=== PATIENT | female | born 1960 | race Caucasian/White ===

== ENCOUNTER → 2017-06-22 | Outpatient (CLI) | payer OTHER, MEDICAID | LOC: BMCIMAGING 10:19 | PROVIDERS: ATTEND Orthopaedic Surgery | DX: M25.562 Pain in left knee (principal); M79.89 Other specified soft tissue disorders; Z96.652 Presence of left artificial knee joint ==

== ENCOUNTER 2017-12-09 18:53 | Inpatient (IN) | payer OTHER, MEDICAID ==
[2017-12-09] MEDS ORDERED: NS 2,200 ML IV ONE (19:44)
--- NOTE | 2017-12-09 19:48 | EDPHY ---
H & P Stated Complaint: memory issues last 2 weeks Time Seen by Provider: 12/09/17 19:33 HPI/ROS: CHIEF COMPLAINT: Altered mental status HISTORY OF PRESENT ILLNESS: The patient is a 57-year-old female who's 2 children bring her to the emergency department complaining that she is confused and delusional. She had a left knee replacement 2 months ago. She was doing well until she had her cast removed about 2 weeks ago. From that point on her children states that she has been very confused. The patient has no complaints but family states that she is wetting the bed several times a day and frequently incontinent of urine. They have not noticed any diarrhea or vomiting recently. She has been walking around the house even when she is not supposed to including walking the dog. The patient has left the stove on twice. She told her children that the cleaning lady was teaching her brail. She told them that she went horseback riding with their sister even though the sister lives in [place] etc. No focal weakness or numbness. REVIEW OF SYSTEMS: Constitutional: denies: chills, fever, recent illness, recent injury EENTM: denies: blurred vision, double vision, nose congestion Respiratory: denies: cough, shortness of breath Cardiac: denies: chest pain, irregular heart rate, lightheadedness, palpitations Gastrointestinal/Abdominal: denies: abdominal pain, diarrhea, nausea, vomiting, blood streaked stools Genitourinary: See HPI Musculoskeletal: denies: joint pain, muscle pain Skin: denies: lesions, rash, jaundice, bruising Neurological: See HPI denies: headache, numbness, paresthesia, tingling, dizziness, weakness Hematologic/Lymphatic: denies: blood clots, easy bleeding, easy bruising Immunologic/allergic: denies: HIV/AIDS, transplant EXAM: GENERAL: Well-appearing, well-nourished and in no acute distress. HEAD: Atraumatic, normocephalic. EYES: Pupils equal round and reactive to light, extraocular movements intact, sclera anicteric, conjunctiva are normal. ENT: TMs normal, nares patent, oropharynx clear without exudates. Moist mucous membranes. NECK: Normal range of motion, supple without lymphadenopathy or JVD. LUNGS: Breath sounds clear to auscultation bilaterally and equal. No wheezes rales or rhonchi. HEART: Regular rate and rhythm without murmurs, rubs or gallops. ABDOMEN: Soft, nontender, normoactive bowel sounds. No guarding, no rebound. No masses appreciated. BACK: No CVA tenderness, no spinal tenderness, step-offs or deformities EXTREMITIES: Left knee in brace, taken down, incision clean dry and intact with no erythema. Mild pain with palpation, no warmth or significant swelling NEUROLOGICAL: Cranial nerves II through XII grossly intact. Normal speech, normal gait. 5/5 strength, normal movement in all extremities, normal sensation PSYCH: Normal mood, normal affect. SKIN: Warm, dry, normal turgor, no visible rashes or lesions. Source: Patient Exam Limitations: No limitations - Personal History Current Tetanus/Diphtheria Vaccine: Yes - Medical/Surgical History Hx Asthma: No Hx Chronic Respiratory Disease: No Hx Diabetes: No Hx Cardiac Disease: No Hx Renal Disease: No Hx Cirrhosis: No Hx Alcoholism: No Hx HIV/AIDS: No Hx Splenectomy or Spleen Trauma: No Other PMH: l knee surgery - Family History Significant Family History: No pertinent family hx - Social History Smoking Status: Former smoker Alcohol Use: Sober Drug Use: None Constitutional: Initial Vital Signs Temperature (C) 37 C 12/09/17 19:09 Heart Rate 70 12/09/17 19:09 Respiratory Rate 18 12/09/17 19:09 Blood Pressure 127/71 H 12/09/17 19:09 O2 Sat (%) 95 12/09/17 19:09 O2 Delivery Mode Room Air Allergies/Adverse Reactions: No Known Allergies Allergy (Unverified 12/09/17 19:07) Home Medications: Medication Instructions Recorded ALPRAZolam [Xanax] 2 mg PO BID PRN 12/09/17 Benztropine Mesylate [Cogentin (*)] 2 mg PO HS 12/09/17 Lurasidone HCl [Latuda] 80 mg PO HS 12/09/17 Methylphenidate HCl [Ritalin 20mg 40 mg PO TID 12/09/17 (*)] Sertraline HCl [Zoloft 50mg (*)] 50 mg PO DAILY 12/09/17 oxyCODONE IR [Oxycodone Ir (*)] 5 - 10 mg PO Q4H PRN 12/09/17 traZODone HCL [Trazodone HCl] 300 mg PO HS 12/09/17 Medical Decision Making ED Course/Re-evaluation: The patient has white cells in her urine although it is not overly impressive but mixed with her clinical picture and history I suspect that she has urinary tract infection causing this altered mental status. I will start her on ceftriaxone admit to the hospitalist service. Family is relieved with this. They state that they cannot handle her at home. She is not toxic appearing and not febrile. She does not meet SIRS or septic criteria. She did receive a fluid bolus. 9:20 p.m. I discussed the case with Dr. Olivo who will admit to the medical service Differential Diagnosis: Partial list of the Differential diagnosis considered include but were not limited to; urinary tract infection, medication reaction and although unlikely based on the history and physical exam, I also considered meningitis, encephalopathy, hemorrhage, CVA. - Data Points Laboratory Results: Laboratory Results 12/09/17 20:00 12/09/17 20:00 12/09/17 12/09/17 12/09/17 20:30 20:00 20:00 Sodium 143 mEq/L mEq/L (135-145) Potassium 3.3 mEq/L L mEq/L (3.5-5.2) Chloride 105 mEq/L mEq/L (97-110) Carbon Dioxide 24 mEq/l mEq/l (22-31) Anion Gap 14 mEq/L mEq/L (8-16) BUN 13 mg/dL mg/dL (7-23) Creatinine 0.6 mg/dL mg/dL (0.6-1.0) Estimated GFR > 60 Glucose 133 mg/dL H mg/dL (70-100) Calcium 9.9 mg/dL mg/dL (8.5-10.4) Total Bilirubin 0.3 mg/dL mg/dL 0.4 mg/dL mg/dL (0.1-1.4) (0.1-1.4) Conjugated Bilirubin 0.2 mg/dL mg/dL (0.0-0.5) Unconjugated Bilirubin 0.1 mg/dL mg/dL (0.0-1.1) AST 19 IU/L IU/L (14-46) ALT 15 IU/L IU/L (9-52) Alkaline Phosphatase 91 IU/L IU/L (38-126) Total Protein 7.5 g/dL g/dL (6.3-8.2) Albumin 4.4 g/dL g/dL (3.5-5.0) Urine Color YELLOW Urine Appearance HAZY Urine pH 5.0 (5.0-7.5) Ur Specific [place] 1.030 (1.002-1.030) Urine Protein 1+ H (NEGATIVE) Urine Ketones 1+ H (NEGATIVE) Urine Blood NEGATIVE (NEGATIVE) Urine Nitrate NEGATIVE (NEGATIVE) Urine Bilirubin NEGATIVE (NEGATIVE) Urine Urobilinogen 2.0 EU H EU (0.2-1.0) Ur Leukocyte Esterase NEGATIVE (NEGATIVE) Urine RBC 1-3 /hpf /hpf (0-3) Urine WBC 5-10 /hpf H /hpf (0-3) Ur Epithelial Cells TRACE /lpf /lpf (NONE-1+) Urine Mucus 4+ /lpf H /lpf (NONE-1+) Urine Glucose NEGATIVE (NEGATIVE) Medications Given: Acetaminophen (Tylenol) 650 mg PO Q4HRS PRN PRN Reason: Pain, Mild/Fever, Can Take PO Stop: 06/07/18 22:19 Last Admin: 12/10/17 05:06 Dose: 650 mg Discontinued Medications Sodium Chloride (Ns) 2,200 mls @ 4,400 mls/hr 30 ml/kg infuse over 30 min ( 2200 ml) IV EDNOW ONE PRN Reason: Protocol Stop: 12/09/17 20:13 Last Admin: 12/09/17 20:04 Dose: 2,200 mls Ceftriaxone Sodium 1 gm/ (Sterile Water) 10 mls @ 150 mls/hr IV EDNOW ONE PRN Reason: Protocol Stop: 12/09/17 21:14 Last Admin: 12/09/17 21:55 Dose: 10 mls Departure - Departure Disposition: [facility] Acute Clinical Impression: Altered mental status Qualifiers: Altered mental status type: unspecified Qualified Code(s): R41.82 - Altered mental status, unspecified Urinary tract infection Qualifiers: Urinary tract infection type: site unspecified Hematuria presence: without hematuria Qualified Code(s): N39.0 - Urinary tract infection, site not specified Condition: Fair
[2017-12-09 20:07] LABS: PLATELET COUNT 394 10^3/uL (150-400)
[2017-12-09 20:20] LABS: INR 1.16 (0.83-1.16)
[2017-12-09] MEDS ORDERED: cefTRIAXone 1 GM in STERILE WATER INJ 10 ML IV ONE (21:11)
[2017-12-09] MEDS ORDERED: ONDANSETRON DISINTEGRATING 4 MG TAB PO PRN (22:20)
[2017-12-09] MEDS ORDERED: ONDANSETRON 4 MG/2 ML VIAL IVP PRN (22:20)
--- NOTE | 2017-12-09 23:57 | PDGENHP ---
History and Physical - Chief Complaint Altered Mental Status - History of Present Illness 57 yo F w/ hx of depression and chronic pain presents with altered mental status. Patient brought to ED by her adult children complaining of recent confusion and delusional thinking. Patient had a L knee replacement 2 months ago. She was doing well until she had the cast removed 2 weeks ago. Since that time children state that patient has been confused. The patient denies any symptoms or recent illness. She recognizes the fact that she is more confused than usual. Per her children, there have been many examples of patient confabulating stories or seeing things that were not there. Patient's medication list is concerning as it contains numerous centrally acting medications. Patient states she takes all of these multiple times a day and is hazy on the details of how many she takes. History Information - Allergies/Home Medication List Allergies/Adverse Reactions: No Known Allergies Allergy (Unverified 12/09/17 19:07) Home Medications: ALPRAZolam [Xanax] 2 mg PO BID PRN 12/09/17 [Last Taken 12/08/17] Benztropine Mesylate [Cogentin (*)] 2 mg PO HS 12/09/17 [Last Taken 12/08/17] Lurasidone HCl [Latuda] 80 mg PO HS 12/09/17 [Last Taken 12/08/17] Methylphenidate HCl [Ritalin 20mg (*)] 40 mg PO TID 12/09/17 [Last Taken ] Sertraline HCl [Zoloft 50mg (*)] 50 mg PO DAILY 12/09/17 [Last Taken 12/09/17] oxyCODONE IR [Oxycodone Ir (*)] 5 - 10 mg PO Q4H PRN 12/09/17 [Last Taken ] traZODone HCL [Trazodone HCl] 300 mg PO HS 12/09/17 [Last Taken 12/08/17] I have personally reviewed and updated: family history, medical history - Past Medical History Additional medical history: Depression. Chronic pain. OA - Surgical History Reports: spinal surgery Additional surgical history: L Knee replacement - Family History Positive for: cancer Additional family history: Depression, anxiety - Social History Smoking Status: Former smoker Alcohol Use: Sober Drug Use: None Review of Systems Review of Systems: ROS: 10pt was reviewed & negative except for what was stated in HPI & below Physical Exam Physical Exam: Temp Pulse Resp BP Pulse Ox 37 C 72 16 122/74 H 95 12/09/17 19:09 12/09/17 20:30 12/09/17 20:30 12/09/17 20:30 12/09/17 20:30 Constitutional: no apparent distress, not in pain Eyes: PERRL, EOMI Ears, Nose, Mouth, Throat: moist mucous membranes, no oral mucosal ulcers Cardiovascular: regular rate and rhythym, systolic murmur Respiratory: no respiratory distress, clear to auscultation Gastrointestinal: normoactive bowel sounds, soft, non-tender abdomen Skin: warm, normal color Musculoskeletal: full muscle strength, no muscle tenderness Neurologic: CN II-XII Intact, other (A&Ox1) Psychiatric: interacting appropriately, poor insight, poor memory Lab Data & Imaging Review 12/09/17 20:00 12/09/17 20:00 WBC 8.85 10^3/uL (3.80-9.50) 12/09/17 20:00 RBC 4.32 10^6/uL (4.18-5.33) 12/09/17 20:00 Hgb 11.2 g/dL (12.6-16.3) L 12/09/17 20:00 Hct 34.0 % (38.0-47.0) L 12/09/17 20:00 MCV 78.7 fL (81.5-99.8) L 12/09/17 20:00 MCH 25.9 pg (27.9-34.1) L 12/09/17 20:00 MCHC 32.9 g/dL (32.4-36.7) 12/09/17 20:00 RDW 15.0 % (11.5-15.2) 12/09/17 20:00 Plt Count 394 10^3/uL (150-400) 12/09/17 20:00 MPV 10.0 fL (8.7-11.7) 12/09/17 20:00 Neut % (Auto) 70.1 % (39.3-74.2) 12/09/17 20:00 Lymph % (Auto) 22.1 % (15.0-45.0) 12/09/17 20:00 Millard % (Auto) 6.8 % (4.5-13.0) 12/09/17 20:00 Eos % (Auto) 0.1 % (0.6-7.6) L 12/09/17 20:00 Baso % (Auto) 0.7 % (0.3-1.7) 12/09/17 20:00 Nucleat RBC Rel Count 0.0 % (0.0-0.2) 12/09/17 20:00 Absolute Neuts (auto) 6.20 10^3/uL (1.70-6.50) 12/09/17 20:00 Absolute Lymphs (auto) 1.96 10^3/uL (1.00-3.00) 12/09/17 20:00 Absolute Monos (auto) 0.60 10^3/uL (0.30-0.80) 12/09/17 20:00 Absolute Eos (auto) 0.01 10^3/uL (0.03-0.40) L 12/09/17 20:00 Absolute Basos (auto) 0.06 10^3/uL (0.02-0.10) 12/09/17 20:00 Absolute Nucleated RBC 0.00 10^3/uL (0-0.01) 12/09/17 20:00 Immature Gran % 0.2 % (0.0-1.1) 12/09/17 20:00 Immature Gran # 0.02 10^3/uL (0.00-0.10) 12/09/17 20:00 PT 15.0 SEC (12.0-15.0) 12/09/17 20:00 INR 1.16 (0.83-1.16) 12/09/17 20:00 APTT 27.6 SEC (23.0-38.0) 12/09/17 20:00 VBG Lactic Acid 2.0 mmol/L (0.7-2.1) 12/09/17 20:00 Sodium 143 mEq/L (135-145) 12/09/17 20:00 Potassium 3.3 mEq/L (3.5-5.2) L 12/09/17 20:00 Chloride 105 mEq/L (97-110) 12/09/17 20:00 Carbon Dioxide 24 mEq/l (22-31) 12/09/17 20:00 Anion Gap 14 mEq/L (8-16) 12/09/17 20:00 BUN 13 mg/dL (7-23) 12/09/17 20:00 Creatinine 0.6 mg/dL (0.6-1.0) 12/09/17 20:00 Estimated GFR > 60 12/09/17 20:00 Glucose 133 mg/dL (70-100) H 12/09/17 20:00 Calcium 9.9 mg/dL (8.5-10.4) 12/09/17 20:00 Total Bilirubin 0.3 mg/dL (0.1-1.4) 12/09/17 20:00 Conjugated Bilirubin 0.2 mg/dL (0.0-0.5) 12/09/17 20:00 Unconjugated Bilirubin 0.1 mg/dL (0.0-1.1) 12/09/17 20:00 AST 19 IU/L (14-46) 12/09/17 20:00 ALT 15 IU/L (9-52) 12/09/17 20:00 Alkaline Phosphatase 91 IU/L (38-126) 12/09/17 20:00 Total Protein 7.5 g/dL (6.3-8.2) 12/09/17 20:00 Albumin 4.4 g/dL (3.5-5.0) 12/09/17 20:00 Urine Color YELLOW 12/09/17 20:30 Urine Appearance HAZY 12/09/17 20:30 Urine pH 5.0 (5.0-7.5) 12/09/17 20:30 Ur Specific [place] 1.030 (1.002-1.030) 12/09/17 20:30 Urine Protein 1+ (NEGATIVE) H 12/09/17 20:30 Urine Ketones 1+ (NEGATIVE) H 12/09/17 20:30 Urine Blood NEGATIVE (NEGATIVE) 12/09/17 20:30 Urine Nitrate NEGATIVE (NEGATIVE) 12/09/17 20:30 Urine Bilirubin NEGATIVE (NEGATIVE) 12/09/17 20:30 Urine Urobilinogen 2.0 EU (0.2-1.0) H 12/09/17 20:30 Ur Leukocyte Esterase NEGATIVE (NEGATIVE) 12/09/17 20:30 Urine RBC 1-3 /hpf (0-3) 12/09/17 20:30 Urine WBC 5-10 /hpf (0-3) H 12/09/17 20:30 Ur Epithelial Cells TRACE /lpf (NONE-1+) 12/09/17 20:30 Urine Mucus 4+ /lpf (NONE-1+) H 12/09/17 20:30 Urine Glucose NEGATIVE (NEGATIVE) 12/09/17 20:30 Imaging Review: Imaging Impressions Head CT 12/09/17 22:59 Impression: 1. Normal CT brain without contrast. 2. Consider MRI of the brain, if there is continued clinical concern. Assessment & Plan Assessment: 57 yo F w/ hx of depression, anxiety, and chronic pain presents with altered mental status. Plan: 1. Sub-acute encephalopathy - Unclear etiology, patient's family reports confusion and delusional thinking for about 2 weeks. She received treatment for UTI in the ED but her UA is not convincing and she denies symptoms of UTI. I suspect this at least partly related to polypharmacy noting patient takes multiple centrally acting medications including opiates, benzodiazepenes, and antipsychotics. - CTH to rule out chronic sub-dural, NPH, etc. - LFTs to screen for HE - TSH, B12, RPR for basic reversible causes of dementia work-up - Observe off on antibiotics for now, await urine culture - OT cognitive evaluation ordered - Limit centrally acting meds as best as able and observe for clearing 2. Depression - Patient on Latuda and Zoloft for this. 3. Chronic pain - As a result of multiple surgeries. She takes oxycodone several times daily. 4. OA - Reports history of spinal and knee surgeries. Diet - Regular Code - Full Ppx - LMWH Dispo - Admit to observation status
[2017-12-10] MEDS: ACETAMINOPHEN 325 MG TAB PO PRN ×3 (05:06→20:52)
[2017-12-10 06:10] LABS: PLATELET COUNT 343 10^3/uL (150-400)
[2017-12-10] MEDS: ENOXAPARIN 40 MG/0.4 ML SYR SC SCH ×2 (10:35→12:12)
[2017-12-10] MEDS ORDERED: NICOTINE POLACRILEX 2 MG GUM B PRN (11:43)
[2017-12-10] MEDS ORDERED: HALOPERIDOL LACT 5 MG/ML INJ IVP ONE (11:43)
[2017-12-10] MEDS ORDERED: LURASIDONE HCL 40 MG TAB PO ONE (13:14)
[2017-12-10] MEDS ORDERED: POTASSIUM CL 20 MEQ TAB PO ONE (13:54)
--- NOTE | 2017-12-10 13:56 | HOSPPROG ---
Hospitalist Progress Note Assessment/Plan: # agitated encephalopathy - likely manic episode - unclear if she has been taking her bipolar meds - also consider d/t infection - concerned about recent L knee surgery - place on M1 - gravely disabled and a danger to herself; discussed with Brenda her daughter - cont bipolar meds # L knee inflammation - recent TKA revision by Dr Bernabe at [facility] - check XR, US, arthrocentesis # bipolar - cont latuda, xanax, trazodone # pain - will hold oxy for now given encephalopathy Subjective: rambling, not making sense; discussed with her daughter Objective: Vital Signs Temp Pulse Resp BP Pulse Ox 36.9 C 69 16 123/82 H 98 12/10/17 08:15 12/10/17 08:15 12/10/17 08:15 12/10/17 08:15 12/10/17 08:15 Laboratory Results 12/10/17 05:55 12/10/17 05:55 PT 15.0 SEC (12.0-15.0) 12/09/17 20:00 INR 1.16 (0.83-1.16) 12/09/17 20:00 - Time Spent With Patient Time Spent with Patient: greater than 35 minutes Time Spent with Patient: Greater than 35 minutes spent on this patients care, greater than 50% of time spent counseling, educating, and coordinating care regarding the above mentioned plan. - Physical Exam Constitutional: unkempt Cardiovascular: regular rate and rhythym, no murmur, rub, or gallop Respiratory: no respiratory distress, no rales or rhonchi Gastrointestinal: soft, non-tender abdomen, no palpable masses Musculoskeletal: other (L knee warm with edema) ICD10 Worksheet Patient Problems: Problems Problem Status Onset Altered mental status Acute Urinary tract infection Acute
[2017-12-10] MEDS: ALPRAZolam 1 MG TAB PO PRN (14:10)
[2017-12-10] MEDS: NICOTINE 21 MG/24 HR PATCH TD SCH (15:01)
--- NOTE | 2017-12-10 15:44 | PDMN ---
Medical Necessity Medical necessity: change to IP; los>2mn for agitated encephalopathy, manic episode vs infection w/concern r/t recent knee surgery/L knee inflammation; requires M1 hold r/t gravely disabled and danger to self, and L knee imaging and arthrocentesis; hx bipolar; per order and progress note 12/10/17
[2017-12-10] MEDS: oxyCODONE IR 5 MG TAB PO PRN (20:52)
[2017-12-10] MEDS: COLCHICINE 0.6 MG CAP/TAB PO SCH (20:52)
[2017-12-10] MEDS: LURASIDONE HCL 80 MG TAB PO SCH (21:00)
[2017-12-10] MEDS: BENZTROPINE MESYLATE 2 MG TAB PO SCH (21:00)
[2017-12-11] MEDS: oxyCODONE IR 5 MG TAB PO PRN (04:55)
[2017-12-11] MEDS: ACETAMINOPHEN 325 MG TAB PO PRN (04:55)
[2017-12-11 05:12] LABS: PLATELET COUNT 385 10^3/uL (150-400)
[2017-12-11] MEDS: NICOTINE 21 MG/24 HR PATCH TD SCH (08:14)
[2017-12-11] MEDS: ENOXAPARIN 40 MG/0.4 ML SYR SC SCH (08:14)
[2017-12-11] MEDS ORDERED: SERTRALINE HCL 50 MG TAB PO SCH (09:00)
[2017-12-11] MEDS: COLCHICINE 0.6 MG CAP/TAB PO SCH ×2 (09:40→20:42)
--- NOTE | 2017-12-11 15:37 | HOSPPROG ---
Hospitalist Progress Note Assessment/Plan: # bipolar with marcos - she now remembers not taking her medications for some days - seen by [facility] - working on placement; [facility] recommends continuing M1 hold - cont her home meds for now # L knee inflammation - XR neg; no joint effusion - she had a L TKA revision 2 months ago - doubt septic joint with normal WBC and no fever - consider gout (she has a history) - empiric colchicine - may be normal post-op swelling though seems more than i would expect # pain - will hold oxy for now given encephalopathy Subjective: less disorganized today, though still slightly manic Objective: Vital Signs Temp Pulse Resp BP Pulse Ox 36.6 C 78 18 111/73 97 12/11/17 07:23 12/11/17 07:23 12/11/17 07:23 12/11/17 07:23 12/11/17 07:23 Laboratory Results 12/11/17 05:00 12/11/17 05:00 12/10/17 12/11/17 12/12/17 05:59 05:59 05:59 Intake Total 750 Output Total 400 Balance 350 PT 15.0 SEC (12.0-15.0) 12/09/17 20:00 INR 1.16 (0.83-1.16) 12/09/17 20:00 XR reviewed discussed with Dr Levine - Physical Exam Constitutional: unkempt Eyes: anicteric sclera Ears, Nose, Mouth, Throat: hearing normal Cardiovascular: No edema Respiratory: no respiratory distress Gastrointestinal: No distension Genitourinary: No hackett in urethra Skin: warm Musculoskeletal: full muscle strength Neurologic: AAOx3 Psychiatric: other (tagnential) ICD10 Worksheet Patient Problems: Problems Problem Status Onset Altered mental status Acute Urinary tract infection Acute
[2017-12-11 15:44] VITALS: PULSE 79
--- NOTE | 2017-12-11 19:42 | GDS ---
[f rep st] DISCHARGE SUMMARY ALL DIAGNOSES: 1. Bipolar with marcos. 2. Acute encephalopathy due to the above. 3. Left knee arthritis. 4. Neck pain. HOSPITAL COURSE: A 57-year-old female, admitted with encephalopathy. She was restarted on her bipolar medications. After she had become slightly less disorganized, she recalled that she had not taken her medications for some days. This likely led to this episode. There was no evidence of an infection. She is doing better on her medications; however, per [facility] evaluation she should be transferred to [facility] for further stabilization. She had been placed on an M1 hold during this hospitalization given the above as well. She had a left TKA revision about 2 months ago. She does have some inflammation around this knee. There is no joint effusion, no DVT. I think the odds of this being a septic joint are very low as it was not erythematous, she has no white count and no fever. Consider gout, she had a few doses of colchicine with no significant change. I think this may just be a normal postoperative change. Will not continue colchicine at this point. She complained of some neck pain. She does not have any neurologic deficits from this. She has a history of cervical spine fusion with hardware in place. I have given her a referral to see Dr. Morocho on her discharge paperwork. BILLING: I spent more than 30 minutes on the day of discharge coordinating care. /[id number]/MODL MTDD
[2017-12-11] MEDS: BENZTROPINE MESYLATE 2 MG TAB PO SCH (20:42)
[2017-12-11] MEDS: LURASIDONE HCL 80 MG TAB PO SCH (20:42)
[2017-12-11] MEDS: ALPRAZolam 1 MG TAB PO PRN (20:58)
[2017-12-12 00:22] VITALS: BP 101/82; RESP 20; TEMP 97.8; O2SAT 95
[2017-12-12] MEDS: ACETAMINOPHEN 325 MG TAB PO PRN (00:46)
[2017-12-12] MEDS: oxyCODONE IR 5 MG TAB PO PRN (00:47)
== END 2017-12-12 01:07 | DRG 885 ==
LOC: F1N 12-10 08:05 → EEVIPCON 12-10 13:50 → OBSVTOIN 12-10 13:50 → F2N 12-10 15:13
PROVIDERS: ADMIT Student in an Organized Health Care Education/Training Program; ATTEND Student in an Organized Health Care Education/Training Program
DX: F31.9 Bipolar disorder, unspecified (principal); G93.49 Other encephalopathy; T43.506A Underdosing of unspecified antipsychotics and neuroleptics, initial encounter; M54.2 Cervicalgia; Z98.1 Arthrodesis status; Z96.652 Presence of left artificial knee joint; Z87.891 Personal history of nicotine dependence; G89.29 Other chronic pain
CPT/HCPCS: 80307; 82607-90; 92507-GN; 92523-GN; 96374; 97116-GP; 97161-GP; G0378; G0480; G8978-GP-CI; G8979-GP-CH; G9165-GN-CK; G9166-GN-CJ; G9167-GN-CJ; J0696; J1630; J1650

== ENCOUNTER 2019-04-03 16:13 | Emergency (ER) | payer OTHER, MEDICAID | END 2019-04-03 17:58 | disposition home or self-care (01) ==